=== PATIENT | male | born 1950 | race Caucasian/White ===

== ENCOUNTER 2021-09-25 07:50 | Day surgery (SDC) | payer MEDICARE, BC ==
[2021-09-24 08:17] LABS: BASOPHILS # (AUTO) 0.1 X10'3 (0-0.2); EOSINOPHILS # (AUTO) 0.6 X10'3 (0-0.9); EOSINOPHILS % (AUTO) 9.6 % (0-6); HEMATOCRIT 47.2 % (42.0-52.0); HEMOGLOBIN 16.1 g/dl (14.0-17.9); LYMPHOCYTES # (AUTO) 1.6 X10'3 (1.1-4.8); MEAN CORPUSCULAR HEMOGLOBIN 31.8 PG (27.0-31.0); MEAN CORPUSCULAR HGB CONC 34.2 g/dL (33.0-36.5); MEAN CORPUSCULAR VOLUME 93.1 FL (78-98); MEAN PLATELET VOLUME 9.7 FL (7.4-10.4); MONOCYTES # (AUTO) 0.7 X10'3 (0-0.9); MONOCYTES % (AUTO) 11.2 % (2-12); NEUTROPHILS # (AUTO) 3.4 X10'3 (1.8-7.7); NEUTROPHILS % (AUTO) 53.2 % (42-75); PLATELET COUNT 193 X10'3 (140-440); RED BLOOD COUNT 5.06 X10'6 (4.70-6.10); RED CELL DISTRIBUTION WIDTH 13.5 % (11.5-14.5); WHITE BLOOD COUNT 6.4 X10'3 (4.5-11.0)
[2021-09-24 08:23] LABS: APTT 27 SECONDS (22-32)
[2021-09-24 09:06] LABS: ALANINE AMINOTRANSFERASE 35 U/L (12-78); ALBUMIN 3.9 G/DL (3.4-5.0); ALBUMIN/GLOBULIN RATIO 1.4 (1.1-1.5); ALKALINE PHOSPHATASE 95 IU/L (46-116); ANION GAP 12 (8-16); ASPARTATE AMINO TRANSFERASE 14 U/L (10-37); BILIRUBIN,TOTAL 0.7 MG/DL (0.1-1.0); BLOOD UREA NITROGEN 21 MG/DL (7-18); BUN/CREATININE RATIO 23.3 (5.4-32.0); CALCIUM 8.9 MG/DL (8.5-10.1); CHLORIDE 104 MMOL/L (99-107); GLUCOSE 145 MG/DL (70-104); POTASSIUM 4.6 MMOL/L (3.5-5.1); SODIUM 142 MMOL/L (135-145); TOTAL CARBON DIOXIDE 26.2 MMOL/L (24-32); TOTAL PROTEIN 6.7 G/DL (6.4-8.2); eGFR 83 ML/MIN
[~2021-09-25] VITALS: Ht 167.6 cm; Wt 95.8 kg
[2021-09-25] VITALS (11 sets, daily range): BP systolic 120–147; BP diastolic 65–86
[2021-09-25] MEDS ORDERED: glucagon, human recombinant 1mg kit SUBCUT PRN (08:15)
[2021-09-25] MEDS ORDERED: LORazepam 0.5 MG tablet PO PRN (08:15)
[2021-09-25] MEDS ORDERED: MESSAGE TO PHARMACY PO ONE (08:15)
[2021-09-25] MEDS ORDERED: normal saline 1,000 ML IV SCH (08:15)
[2021-09-25] MEDS ORDERED: methylPREDNISolone sod succ 125mg/2ml vial IV ONE (08:15)
[2021-09-25] MEDS ORDERED: insulin Lispro (HumaLOG) vial - multi-dose SQ SCH (08:15)
[2021-09-25] MEDS ORDERED: dextrose 50%-water 50ml dispensing syringe IV PRN ×2 (08:15)
[2021-09-25] MEDS ORDERED: dextrose ORAL solution 15 GM/59 ML bottle PO PRN ×2 (08:15)
[2021-09-25] MEDS ORDERED: diphenhydrAMINE 25mg capsule PO PRN (08:15)
[2021-09-25] MEDS ORDERED: nitroGLYCERIN 0.4mg SUBLingual tab SL PRN (08:15)
[2021-09-25] MEDS ORDERED: ATOR40TA72 PO (08:21)
[2021-09-25] MEDS ORDERED: EMPA10TA PO (08:21)
[2021-09-25] MEDS ORDERED: FINA5TAB11 PO (08:21)
[2021-09-25] MEDS ORDERED: FLO0.4C PO (08:21)
[2021-09-25] MEDS ORDERED: ALLO300T8 PO (08:21)
[2021-09-25] MEDS ORDERED: METF-438 PO (08:21)
[2021-09-25] MEDS ORDERED: BENA10TA75 PO (08:21)
[2021-09-25] MEDS ORDERED: GLIM4TAB7 PO (08:21)
[2021-09-25] MEDS ORDERED: POTA-280 (08:21)
[2021-09-25] MEDS ORDERED: FISH OIL PO (08:27)
[2021-09-25] MEDS ORDERED: [UNRECOGNIZED DRUG - OTHER] PO (08:27)
[2021-09-25] MEDS ORDERED: ASPI81TA52 PO (08:27)
[2021-09-25] MEDS ORDERED: FLU VACC QS2021-22(6MOS UP)/PF 60 MCG/0.5 ML SYRINGE IM ONE (09:25)
[2021-09-25] MEDS ORDERED: fentaNYL/PF 50MCG/1 ML 2ML syringe ONE (10:19)
[2021-09-25] MEDS ORDERED: iohexol 350MG/ML 100ml bottle IV ONE ×2 (10:20→12:04)
[2021-09-25] MEDS ORDERED: midazolam 1 mg/ML 2ml injection ONE (10:20)
[2021-09-25] MEDS ORDERED: iohexol 350 MG/ML 50ML vial IV ONE ×2 (10:20→11:35)
[2021-09-25] MEDS ORDERED: LIDOcaine 1% (10mg/ml)w/preservative injection 20ml MDV ONE (10:20)
[2021-09-25] MEDS ORDERED: heparin 1,000 UNITS/NS 500ml 500 ML ONE (11:04)
[2021-09-25] MEDS ORDERED: HYDROcodone/acetaminophen 5mg/325mg tablet PO PRN (12:50)
[2021-09-25] MEDS ORDERED: proCHLORperazine 10 MG/2 ml inj IV PRN (12:50)
[2021-09-25] MEDS ORDERED: HYDROcodone/acetaminophen 10/325mg tab PO PRN (12:50)
[2021-09-25] MEDS ORDERED: normal saline 1000ml 1,000 ML IV SCH (12:50)
[2021-09-25] MEDS ORDERED: OXAZEpam 15mg capsule PO PRN (12:50)
[2021-09-25] MEDS ORDERED: ondansetron/PF 4mg/2ml inj IV PRN (12:50)
[2021-09-25] MEDS ORDERED: ACETYLCYSTEINE 200 MG/1 ML 4 ML ORAL SOLUTION PO SCH (20:00)
[2021-09-25] MEDS ORDERED: insulin glargine (Lantus) pen - multi-dose SQ SCH (21:00)
== END 2021-09-25 18:19 | disposition home or self-care (01) ==
LOC: SSTAY O 07:50
PROVIDERS: ATTEND Internal Medicine Cardiovascular Disease
DX: R94.39 Abnormal result of other cardiovascular function study (principal); I25.810 Atherosclerosis of coronary artery bypass graft(s) without angina pectoris; M13.88 Other specified arthritis, other site; E11.9 Type 2 diabetes mellitus without complications; N40.0 Benign prostatic hyperplasia without lower urinary tract symptoms; I42.9 Cardiomyopathy, unspecified; G47.33 Obstructive sleep apnea (adult) (pediatric); E66.9 Obesity, unspecified; Z68.34 Body mass index [BMI] 34.0-34.9, adult; I10 Essential (primary) hypertension; E78.5 Hyperlipidemia, unspecified; Z87.891 Personal history of nicotine dependence; Z72.89 Other problems related to lifestyle; Z86.16 Personal history of COVID-19; Z98.890 Other specified postprocedural states; Z79.899 Other long term (current) drug therapy; Z79.01 Long term (current) use of anticoagulants; Z79.84 Long term (current) use of oral hypoglycemic drugs; Z79.82 Long term (current) use of aspirin
CPT/HCPCS: 36415; 71046; 80053; 82948; 85025; 85610; 85730; 93005; 93459; 93567; 99152; 99153; C1760; C1769; J1644; J1815; J2250; J2930; J3010; J3490; J7030; Q0163; Q9967; A4620; A6258